=== PATIENT | female | born 1935 | race Caucasian/White ===

== ENCOUNTER → 2016-04-26 | Outpatient (CLI) | payer MEDICARE, BC ==
--- NOTE | 2016-04-27 07:35 | MM ---
Reason for exam: screening (asymptomatic). Last mammogram was performed 1 year and 2 months ago. History: Patient is postmenopausal. Family history of premenopausal breast cancer in sister at age 40. Benign excisional biopsy of the right breast, May 22, 2000. Physical Findings: A clinical breast exam by your physician is recommended on an annual basis and results should be correlated with mammographic findings. MG Screening Mammo w CAD Bilateral CC and MLO view(s) were taken. Prior study comparison: February 28, 2015, bilateral MG screening mammo w CAD. May 10, 2011, bilateral digital screening mammo w/CAD. There are scattered fibroglandular densities. Finding: There are increased grouped/clustered calcifications in the upper outer quadrant of the left breast. Increase in number of calcifications since February 28, 2015 and May 10, 2011. ASSESSMENT: Incomplete: need additional imaging evaluation, BI-RAD 0 RECOMMENDATION: Special view mammogram of the left breast. [facility] will attempt to contact patient to return for supplemental views.
== END | disposition home or self-care (01) ==
LOC: RADMAMWWP 14:41
PROVIDERS: ATTEND Family Medicine
DX: Z12.31 Encounter for screening mammogram for malignant neoplasm of breast (principal)

== ENCOUNTER → 2016-05-02 | Outpatient (CLI) | payer MEDICARE, BC ==
--- NOTE | 2016-05-03 07:05 | MM ---
Reason for exam: additional evaluation requested from abnormal screening. Last mammogram was performed less than 1 month ago. History: Patient is postmenopausal. Family history of premenopausal breast cancer in sister at age 40. Benign excisional biopsy of the right breast, May 22, 2000. Physical Findings: Nurse did not find any significant physical abnormalities on exam. MG 3D Work Up W/Cad LT CC and MLO view(s) were taken of the left breast. Prior study comparison: April 26, 2016, bilateral MG screening mammo w CAD. February 28, 2015, bilateral MG screening mammo w CAD. There are scattered fibroglandular densities. Finding: There are grouped/clustered calcifications in the left breast. These results were verbally communicated with the patient and result sheet given to the patient on 05/02/16. ASSESSMENT: Suspicious, BI-RAD 4 RECOMMENDATION: Surgical consultation and stereotactic core biopsy of the left breast. Called Dr. Curtis with mammographic findings and has scheduled an appointment for the patient for 05/10/16 at 12:[address] Amor. PRELIMINARY REPORT CALLED AND FAXED TO DR. AMOR ON 05/03/16 AT 700/TP.
== END | disposition home or self-care (01) ==
LOC: RADMAMWWP 14:08
PROVIDERS: ATTEND Family Medicine
DX: R92.8 Other abnormal and inconclusive findings on diagnostic imaging of breast (principal)
CPT/HCPCS: G0206; G0279

== ENCOUNTER → 2016-05-18 | Day surgery (SDC) | payer MEDICARE, BC ==
[~2016-05-18] MED LIST: BACITRACIN OINT 1 EACH PACKET TOPICAL ONE; LIDOCAINE 1% INJ 10MG/ML (20 ML MDV) ONE; SODIUM BICARB 4% 5 ML VIAL (0.48 MEQ/ML) ONE
--- NOTE | 2016-05-18 09:12 | MM ---
EXAMINATION TYPE: MG stereo VAD BX LT DATE OF EXAM: 05/18/2016 9:05 AM COMPARISON: NONE CLINICAL HISTORY: Abnormal left breast mammogram TECHNIQUE: Stereotactic guided core biopsy of left breast. FINDINGS: The procedure of stereotactic guided core biopsy was explained to the patient. Benefits, alternatives, and risks were discussed. An informed consent was then obtained. The shortness pathway for biopsy was chosen. Shortness pathway was chosen. I performed the localization, then surgeon, Dr. Ever Benton performed the remainder of the procedure. A vacuum assisted biopsy gun was used to obtain multiple core samples. The patient tolerated the procedure well without any immediate complication. The patient was kept in the radiology department for short stay after the procedure and then discharged home in stable condition. Targeted calcifications are identified in specimen mammogram. Post biopsy mammogram shows the clip to appear in satisfactory position relative to the targeted area of concern on the preprocedure images. IMPRESSION: SUCCESSFUL, UNCOMPLICATED STEREOTACTIC GUIDED CORE BIOPSY OF AREA OF CONCERN IN THE left BREAST, FULL PATHOLOGY RESULTS TO FOLLOW. Pathology Results: Benign BREAST, LEFT, STEREOTACTIC CORE BIOPSY: FIBROCYSTIC CHANGE (STROMAL FIBROSIS, CYST FORMATION, AND ADENOSIS). FIBROADENOMATOID HYPERPLASIA WITH HYALINIZATION AND CALCIFICATIONS. PENDING DEEPER SECTIONS. ADDENDUM REPORT BREAST, LEFT, STEREOTACTIC CORE BIOPSY: FIBROCYSTIC CHANGE (STROMAL FIBROSIS, CYST FORMATION AND ADENOSIS). FIBROADENOMATOID HYPERPLASIA WITH HYALINIZATION AND CALCIFICATIONS. Recommendation Follow up mammogram of the left breast in 6 months. DAIANA
--- NOTE | 2016-05-18 13:21 | PCN ---
DATE OF PROCEDURE: PREPROCEDURE DIAGNOSIS: Mammographic abnormality, left breast. POSTPROCEDURE DIAGNOSIS: Mammographic abnormality, left breast. PROCEDURE: Left breast stereotactic core biopsy. PROCEDURE: The patient was taken to the stereotactic core room and the area of concern in the left breast was identified. Needle was driven to the correct coordinates and multiple core biopsies were obtained. Radiograph of the specimen revealed the area of concern had been sampled. A marking clip was left behind. The patient tolerated the procedure in stable condition.
== END | disposition home or self-care (01) ==
LOC: RADMAMWWP 07:19
PROVIDERS: ATTEND Surgery
DX: N60.22 Fibroadenosis of left breast (principal); N60.32 Fibrosclerosis of left breast; N60.02 Solitary cyst of left breast; N62 Hypertrophy of breast; R92.1 Mammographic calcification found on diagnostic imaging of breast
CPT/HCPCS: 19081; 88305; A4648; J2001

== ENCOUNTER → 2016-05-23 | Outpatient (CLI) | payer MEDICARE, BC ==
--- NOTE | 2016-05-23 17:37 | US ---
EXAMINATION TYPE: US carotid duplex BILAT DATE OF EXAM: 05/23/2016 3:21 PM COMPARISON: NONE CLINICAL HISTORY: 80-year-old female [id number] SYNCOPE AND COLLAPSE. Patient states feeling light headed wi th near fainting. TECHNIQUE: Duplex carotid ultrasound. Indirect Doppler criteria utilized. FINDINGS: Very mild atherosclerotic changes at the bifurcations. The left ICA is tortuous. EXAM MEASUREMENTS: RIGHT: Peak Systolic Velocity (PSV) cm/sec ----- Right CCA: 72.9 ----- Right ICA: 99.6 ----- Right ECA: 69.4 ICA/CCA ratio: 1.4 RIGHT: End Diastole cm/sec ----- Right CCA: 14.5 ----- Right ICA: 27.0 ----- Right ECA: 0.0 LEFT: Peak Systolic Velocity (PSV) cm/sec ----- Left CCA: 83.4 ----- Left ICA: 143.1 ----- Left ECA: 74.7 ICA/CCA ratio: 1.7 LEFT: End Diastole cm/sec ----- Left CCA: 21.5 ----- Left ICA: 39.7 ----- Left ECA: 0.0 VERTEBRALS (direction of flow): Right Vertebral: Antegrade Left Vertebral: Antegrade IMPRESSION: Slightly elevated velocity in the left ICA secondary to vessel tortuosity. No hemodynamically signifi cant stenosis appreciated in either internal carotid artery. Criteria for Assigning % of Stenosis / Diameter reduction (Estimation based on the indirect measurements of the internal carotid artery velocities (ICA PSV). 1. Normal (no stenosis)=ICA PSV < 125 cm/s: ratio < 2.0: ICA EDV<40 cm/s. 2. Less than 50% stenosis=ICA PSV < 125 cm/s: ratio < 2.0: ICA EDV<40 cm/s. 3. 50 to 69% stenosis=ICA PSV of 125 to 230 cm/s: ration 2.0 ? 4.0: ICA EDV 40-100 cm/s. 4. Greater than 70% stenosis to near occlusion= ICA PSV > 230 cm/s: ratio > 4.0: ICA EDV > 100 cm/s. 5. Near occlusion= ICA PSV velocities may be low or undetectable: variable ratio and ICA EDV. 6. Total occlusion=unable to detect flow.
== END | disposition home or self-care (01) ==
LOC: RADUSWWP 14:55
PROVIDERS: ATTEND Family Medicine
DX: R55 Syncope and collapse (principal)
CPT/HCPCS: 93880

== ENCOUNTER 2016-07-24 07:26 | Day surgery (SDC) | payer MEDICARE, BC ==
[2016-07-20 09:39] VITALS: BMI 18.3
[~2016-07-24 07:26] MED LIST changes: -BACITRACIN OINT 1 EACH PACKET TOPICAL ONE; +LACTATED RINGERS 1,000 ML IV SCH; -LIDOCAINE 1% INJ 10MG/ML (20 ML MDV) ONE; -SODIUM BICARB 4% 5 ML VIAL (0.48 MEQ/ML) ONE
[2016-07-24 08:06] VITALS: TEMP 97.5
[2016-07-24] MEDS ORDERED: LIDOCAINE 1% 20 ML VIAL (10MG/ML) FOR IV START INTRADERMA ONE (08:06)
[2016-07-24] MEDS ORDERED: GLUCAGON 1 MG/ML VIAL ONE (08:26)
[2016-07-24] MEDS ORDERED: PROPOFOL 10 MG/ML 20 ML VIAL IV ONE (08:26)
[2016-07-24 09:11] VITALS: RESP 18
--- NOTE | 2016-07-24 09:14 | P.PCN ---
Date of Procedure: 07/24/16 Preoperative Diagnosis: Change in bowel habits, difficulty with bowel movements Postoperative Diagnosis: Tortuous redundant bowel, sharp angulation between rectum and sigmoid colon, extensive diverticuli, external hemorrhoids, internal hemorrhoids Procedure(s) Performed: Colonoscopy Implants: Anesthesia: PRASANNAAPADMINI Surgeon: Linsey Amor Estimated Blood Loss (ml): 0 IV fluids (ml): 400 Pathology: none sent Condition: stable Disposition: PACU Indications for Procedure: Patient with difficulty with bowel movements change in bowel habits Operative Findings: Internal/external hemorrhoids, sharp angulation of the bowel between the rectum and the sigmoid colon, extensive diverticuli, tortuous bowel Description of Procedure: Patient was taken to the endoscopy suite and following sedation rectal exam was performed. Patient was noted to have external hemorrhoids adequate sphincter tone and no masses. The colonoscope was passed through the anus into the rectum. There was a somewhat sharp angulation between the rectum and the sigmoid colon however with careful manipulation the scope was able to be passed into the sigmoid colon. Moderate to extensive diverticuli were present in the sigmoid colon. The scope was passed to the splenic flexure, transverse colon, hepatic flexure right colon down to the area of the cecum. In the process of advancing the scope the patient was given glucagon to relax the bowel. The scope was carefully withdrawn from the cecum to the to the right colon, transverse colon, left colon, with close attention to the mucosal detail. No mucosal lesions of concern were identified. The scope was brought down into the rectum where it was retroflexed and internal hemorrhoids were identified. Impression/plan: 1. Sigmoid diverticuli 2. Internal/external hemorrhoids 3. Tortuosity of the bowel 4. Sharp angulation between rectum and sigmoid 5. Patient does not have any malignant or premalignant mucosal areas of concern in the colon Plan: 1. Conservative management of diverticuli and hemorrhoids 2. Consider CARDIOLOGY RN consult as it is felt the patient most likely has a pelvic floor weakness which results in bladder prolapse by history
--- NOTE | 2016-07-24 09:15 | P.DS ---
Providers Attending physician: Linsey Amor Primary care physician: Omar Curtis Plan - Discharge Summary New Discharge Prescriptions: No Action Multivit-Min/Iron/Folic/Lutein [Centrum Silver Women Tablet] 1 tab PO DAILY Discharge Medication List Multivit-Min/Iron/Folic/Lutein [Centrum Silver Women Tablet] 1 tab PO DAILY 04/06 [History] Follow up Appointment(s)/Referral(s): Linsey Amor MD [STAFF PHYSICIAN] - 1 Week Patient Instructions/Handouts: *Surgery [facility] - (Anesthesia) Endoscopy Discharge Instructions, Colonoscopy (DC), Diverticulosis (GEN) Activity/Diet/Wound Care/Special Instructions: diverticular diet Discharge Disposition: HOME SELF-CARE
[2016-07-24 09:45] VITALS: BP 172/82; PULSE 81
== END 2016-07-24 10:14 | disposition home or self-care (01) ==
LOC: ORWHC2ENDO 07:26
PROVIDERS: ATTEND Surgery
DX: K57.30 Diverticulosis of large intestine without perforation or abscess without bleeding (principal); K64.4 Residual hemorrhoidal skin tags; K64.8 Other hemorrhoids; K63.89 Other specified diseases of intestine; Q43.8 Other specified congenital malformations of intestine; Z79.899 Other long term (current) drug therapy
CPT/HCPCS: 45378; J1610; J2704

== ENCOUNTER → 2016-11-19 | Outpatient (CLI) | payer MEDICARE, BC ==
--- NOTE | 2016-11-19 13:47 | MM ---
Reason for exam: follow-up at short interval from prior study. Last mammogram was performed 7 months ago. History: Patient is postmenopausal. Family history of premenopausal breast cancer in sister at age 40. Benign MG stereo VAD BX LT of the left breast, May 18, 2016. Benign excisional biopsy of the right breast, May 22, 2000. Physical Findings: Nurse did not find any significant physical abnormalities on exam. MG 3D Diag Mammo W/Cad LT CC and MLO view(s) were taken of the left breast. Prior study comparison: May 02, 2016, left breast MG 3d work up w/cad LT. April 26, 2016, bilateral MG screening mammo w CAD. There are scattered fibroglandular densities. Finding: There are typically benign round, regional, grouped calcifications in the left breast. Previous mammotome biopsy in the left breast. There is no discrete abnormality. These results were verbally communicated with the patient and result sheet given to the patient on 11/19/16. ASSESSMENT: Benign, BI-RAD 2 RECOMMENDATION: Return to routine screening mammogram schedule for both breasts. Back on schedule for April 2017.
== END | disposition home or self-care (01) ==
LOC: RADMAMWWP 12:55
PROVIDERS: ATTEND Surgery
DX: R92.8 Other abnormal and inconclusive findings on diagnostic imaging of breast (principal)
CPT/HCPCS: G0206; G0279

== ENCOUNTER → 2023-04-03 | Outpatient (CLI) | payer MEDICARE, BC ==
--- NOTE | 2023-04-03 21:10 | BD ---
EXAMINATION TYPE: Axial Bone Density DATE OF EXAM: 04/03/2023 CLINICAL HISTORY: 87 years old Female. ICD-10 CODE: Z78.0 ASYMPTOMATIC MENOPAUSAL Height: 60 Weight: 77.0 FRAX RISK QUESTIONS: Alcohol (3 or more units per day): no Family History (Parent hip fracture): no Glucocorticoids (More than 3mos): no History of Fracture in Adulthood: no Secondary Osteoporosis: 1. Type 1 Diabetes: no 2. Hyperthyroidism: no 3. Menopause before 45: no 4. Malnutrition: no 5. Chronic liver disease: no Rheumatoid Arthritis: no Current Tobacco Use: no RISK FACTORS HISTORY OF: Hip Fracture (Right/Left): no Spine Fracture: no History of Wrist Fracture: no Surgery to Spine/Hip(right/left)/Wrist (right/left): no MEDICATIONS: Thyroid Medications: no Osteoporosis Medications: no EXAM MEASUREMENTS: Bone mineral densitometry was performed using the [facility]. Bone mineral density as measured about the Lumbar spine is: ----- L1-L4(G/cm2): 1.021 T Score Values are as follows: ----- L1: ----- L2: -2.1 ----- L3: -1.9 ----- L4: -1.2 ----- L1-L4: -1.3 Z Score Values are as follows: ----- L1: 0.9 ----- L2: 1.1 ----- L3: 1.8 ----- L4: 2.6 ----- L1-L4: 1.7 Bone mineral density has: decreased -5.7 % since study of: 04/04/2015 Bone mineral density about the R hip (g/cm2): 0.847 Bone mineral density about the L hip (g/cm2): 0.873 T Score values are as follows: -----R Neck: -1.4 -----L Neck: -1.6 -----R Total: -1.3 -----L Total: -1.1 Z Score values are as follows: -----R Neck: 1.8 -----L Neck: 1.7 -----R Total: 2.0 -----L Total: 2.2 Bone mineral density has: decreased -5.0 % since study of: 04/04/2015 FRAX%s: The graph provided illustrates a 10.2% chance for a major osteoporotic fx and a 3.1% chance f or the hips probability for fx in 10 years time. IMPRESSION: Osteopenia (T Score between -2.5 and -1). There is slightly increased risk of fracture and the patient may be considered for treatment. Re-Screen 2-5 years. NOTE: T-SCORE=SD OF THE YOUNG ADULT MEAN.
--- NOTE | 2023-04-04 15:26 | MM ---
Reason for Exam: Screening (asymptomatic). Last mammogram was performed 6 year(s) and 11 month(s) ago. Patient History: Menarche at age 11. First Full-Term at age 27. Postmenopausal. 05/18/2016, Benign Core Biopsy on the left side. 05/22/2000, Benign Excisional Biopsy on the right side. Sister had breast cancer, age 40. Prior Study Comparison: 04/26/2016 Bilateral Screening Mammogram, [facility]. 05/02/2016 Left Diagnostic Mammogram, [facility]. 11/19/2016 Left Diagnostic Mammogram, [facility]. Tissue Density: The breast tissue is heterogeneously dense. This may lower the sensitivity of mammography. Findings: Analyzed By CAD. There is no suspicious group of microcalcifications or new suspicious mass. Benign-appearing calcifications bilaterally. Overall Assessment: Benign, BI-RAD 2 Management: Screening Mammogram of both breasts in [address] [facility] will attempt to contact patient to return for supplemental views and ultrasound if indicated. Patient should continue monthly self-breast exams. A clinical breast exam by your physician is recommended on an annual basis. This exam should not preclude additional follow-up of suspicious palpable abnormalities. Note on Rylee scores and lifetime risk: 1. A Rylee score greater than 3% is considered moderate risk. If this is the case, consider specialist referral to assess eligibility for a risk reducing agent. 2. If overall lifetime risk for the development of breast cancer is 20% or higher, the patient may qualify for future screening with alternating mammogram and breast MRI. Electronically signed and approved by: Arun Rinaldi DO
== END | disposition home or self-care (01) ==
LOC: RADMAMWWP 14:07
PROVIDERS: ATTEND Family Medicine
DX: Z12.31 Encounter for screening mammogram for malignant neoplasm of breast (principal); M85.89 Other specified disorders of bone density and structure, multiple sites; Z78.0 Asymptomatic menopausal state; Z80.3 Family history of malignant neoplasm of breast
CPT/HCPCS: 77063; 77067; 77080